=== PATIENT | male | born 1980 | race Caucasian/White ===

== ENCOUNTER 2018-10-22 23:25 | Emergency (ER) | payer OTHER ==
[~2018-10-22] VITALS: Ht 180.3 cm; Wt 68.0 kg
[2018-10-22 23:29] VITALS: BP 139/81
--- NOTE | 2018-10-22 23:30 | NUR ---
PT TAKEN TO BED 4.
--- NOTE | 2018-10-22 23:30 | NUR ---
PATIENT BIB SELF WITH C/O BROKEN ANKLE DG X3 WEEKS AGO. STATES HE NEEDS RE-SPLINTING AND A NEW WRAP. PT STATES HE HAS HAD IT RE-SPLINTED TWO PRIOR TIMES. PATIENT STATES PAIN OF 5/10 AT THIS TIME; VSS; PATIENT POSITIONED FOR COMFORT; HOB ELEVATED; BEDRAILS UP X2; BED DOWN. ER MD MADE AWARE OF PT STATUS.
--- NOTE | 2018-10-23 00:47 | NUR ---
PLACED A SHORT LEG POSTERIOR SPLINT ON PT'S RIGHT ANKLE. SECURED SPLINT USING TWO ARLEY WRAPS. PROVIDED PT WITH CRUTCHES AND VERBAL INSTRUCTION ON HOW TO UTILIZE THEM. PT DEMONSTRATED USE SUCCESSFULLY.
[2018-10-23 01:03] VITALS: BP 133/83
--- NOTE | 2018-10-23 01:03 | NUR ---
Patient discharged with v/s stable. Written and verbal after care instructions given and explained. Patient alert, oriented and verbalized understanding of instructions. Ambulatory with steady gait. All questions addressed prior to discharge. ID band removed. Patient advised to follow up with PMD. Rx of MOTRIN 800MG given. Patient educated on indication of medication including possible reaction and side effects. Opportunity to ask questions provided and answered. CD OF IMAGES GIVEN TO PT TO TAKE TO PRIMARY MD.
== END 2018-10-23 01:03 | disposition home or self-care (01) ==
LOC: MED 23:25
DX: S82.51XA Displaced fracture of medial malleolus of right tibia, initial encounter for closed fracture (principal); V03.99XA Pedestrian with other conveyance injured in collision with car, pick-up truck or van, unspecified whether traffic or nontraffic accident, initial encounter; Y93.89 Activity, other specified; Y92.89 Other specified places as the place of occurrence of the external cause; Y99.8 Other external cause status
CPT/HCPCS: 29515; 73610; 73630; 99283; Q0092

== ENCOUNTER 2022-04-11 00:45 | Emergency (ER) | payer OTHER ==
[~2022-04-11] VITALS: Ht 180.3 cm; Wt 72.6 kg
[2022-04-11 00:54] VITALS: BP 134/68
--- NOTE | 2022-04-11 00:59 | NUR ---
TO LOBBY FOLLOWING TRIAGE
--- NOTE | 2022-04-11 01:57 | NUR ---
Dr. Sierra examining patient.
[2022-04-11 02:24] VITALS: BP 134/68
--- NOTE | 2022-04-11 02:24 | NUR ---
Patient Left without D/C papers.
== END 2022-04-11 02:24 | disposition home or self-care (01) ==
LOC: MED 00:45
DX: J02.9 Acute pharyngitis, unspecified (principal)
CPT/HCPCS: 99281

== ENCOUNTER 2022-04-20 05:10 | Emergency (ER) | payer OTHER ==
--- NOTE | 2022-04-20 05:42 | NUR ---
CALLED PT FROM LOBBY AND OUTSIDE. PER ADMITING PT WALKED OUT AWHILE AGO.
--- NOTE | 2022-04-20 05:42 | NUR ---
PATIENT LEFT WITHOUT BEING SEEN BY DR. MILLS. NO FURTHER CARE PROVIDED FOR PATIENT.
== END 2022-04-20 05:42 | disposition left against medical advice (07) ==
LOC: MED 05:10
DX: H92.09 Otalgia, unspecified ear (principal); Z53.21 Procedure and treatment not carried out due to patient leaving prior to being seen by health care provider

== ENCOUNTER 2022-05-17 04:33 | Emergency (ER) | payer OTHER ==
[~2022-05-17] VITALS: Ht 180.3 cm; Wt 65.8 kg
--- NOTE | 2022-05-17 04:33 | NUR ---
PT MALLORY ALBERTO, PREBOOK. TAKEN TO CHAIR
[2022-05-17 04:34] VITALS: BP 131/64
--- NOTE | 2022-05-17 04:42 | NUR ---
Dr. See examining patient.
--- NOTE | 2022-05-17 05:02 | NUR ---
PATIENT BIB [employer]. PATIENT EXAMINED BY DR. RILEY. PATIENT MEDICALLY CLEARED AND RELEASED IN CUSTODY IN STABLE CONDITION. ORIGINAL PRE-BOOK FORM GIVEN TO OFFICER DOUGLAS, #[id number].
== END 2022-05-17 05:02 ==
LOC: MED 04:33
DX: Z02.89 Encounter for other administrative examinations (principal); H92.03 Otalgia, bilateral
CPT/HCPCS: 99283